=== PATIENT | male | born 1955 | race Caucasian/White ===

== ENCOUNTER 2021-07-13 04:51 | Day surgery (SDC) | payer OTHER, MEDICARE ==
[2021-07-11 14:17] VITALS: BMI 26.6
[2021-07-13 08:40] VITALS: TEMP 97.5
[2021-07-13 10:22] VITALS: BP 114/71; PULSE 62
== END 2021-07-13 10:23 | disposition home or self-care (01) ==
LOC: JASU-ENDO 04:51
PROVIDERS: ATTEND Internal Medicine Gastroenterology
PROC: 0DBK8ZX Excision of Ascending Colon, Via Natural or Artificial Opening Endoscopic, Diagnostic (ICD-10-PCS; 2021-07-13)
PROC: 0DBL8ZX Excision of Transverse Colon, Via Natural or Artificial Opening Endoscopic, Diagnostic (ICD-10-PCS; principal; 2021-07-13 08:00)
DX: Z12.11 Encounter for screening for malignant neoplasm of colon (principal); D12.2 Benign neoplasm of ascending colon; D12.3 Benign neoplasm of transverse colon; K64.8 Other hemorrhoids; K63.89 Other specified diseases of intestine; K57.30 Diverticulosis of large intestine without perforation or abscess without bleeding
CPT/HCPCS: 88305-TC; 93005; 93010